=== PATIENT | male | born 1950 | race Caucasian/White ===

== ENCOUNTER 2019-07-14 11:44 | Emergency (ER) | payer MEDICARE ==
[2019-07-14] MEDS ORDERED: Lorazepam 2 MG/ML VIAL ONE (12:16)
[2019-07-14] MEDS ORDERED: Adacel (T-DAP) 0.5 ML SYRINGE ONE (12:30)
--- NOTE | 2019-07-14 12:43 | CT ---
CT BRAIN WITHOUT IV CONTRAST: HISTORY: Injury from trauma/fall. COMPARISON: 08/04/2016 FINDINGS: There was some atrophy and chronic white matter ischemic changes noted bilaterally with some generali zed ventricular dilatation which appears to be slightly more prominent than when compared to the prio r MRI, 08/04/2016. Stable left frontal encephalomalacic change. No mass or midline shift. No intraaxi al or extraaxial hemorrhage. The sinuses and mastoids are clear of acute process. Stable postoperativ e changes involving the right and left frontal bone regions. IMPRESSION: 1. No mass or bleed or other acute process. Some generalized ventriculomegaly, slightly more prominen t than prior MRI from 08/04/2016. 2. 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 No new process. POS: [facility]
--- NOTE | 2019-07-14 12:43 | CT ---
EXAM: CT cervical spine PROVIDED CLINICAL HISTORY: Injury after a fall. Trauma. TECHNIQUE: Contiguous axial CT images are obtained through the cervical spine from the skull base to the T2 leve l. Sagittal and coronal reformatted images are provided. COMPARISON: None FINDINGS: There is motion artifact which does limit evaluation. There is trace anterolisthesis of C7 on T1 likely due to facet hypertrophic changes, but there does a ppear to be fusion of the right-sided facet joints at this level. No additional level of subluxation is seen. The vertebral body heights are within normal limits, and no fracture is seen. Multilevel degenerative changes are seen in the cervical spine. Disc osteophyte complexes and uncinat e process hypertrophy are seen at multiple levels in addition to narrowing of the intervertebral disc spaces at all levels. There is central canal narrowing greatest at the C5-6 and C6-7 levels. The re is moderate to severe left-sided neural foraminal narrowing at the C4-5 level and on the right at the C5-6 level as well as bilaterally at the C6-7 level primarily related to bony encroachment. No prevertebral soft tissue swelling apparent. Visualized lung apices appear clear. Small hypodense 1.2 cm nodule seen in the left lobe of the thyroid gland. IMPRESSION: 1. There is motion artifact which does limit osseous detail, but no evidence of a fracture or traumat ic subluxation is seen. 2. Multilevel degenerative changes seen throughout the cervical spine. 3. Hypodense nodule left lobe of thyroid gland. Nonemergent thyroid ultrasound is recommended..
--- NOTE | 2019-07-14 13:00 | CT ---
EXAM: CT Facial Bones WO Con PROVIDED CLINICAL HISTORY: Trauma. Injury after a fall. COMPARISON: None FINDINGS: No fracture seen involving the facial bones. There is mild rightward deviation of the bony nasal sept um. The paranasal sinuses and visualized mastoid air cells are clear. There is mild subcutaneous soft tissue irregularity seen anterior to the maxilla with minimal subcutaneous soft tissue swelling with slight increased density seen involving the inferior aspect of the nose which may be related to recent injury and laceration with soft tissue swelling. The orbits are symmetric and normal in fausto earance bilaterally. The temporomandibular joints have a normal appearance without dislocation. Degenerative changes are seen in the cervical spine. There is a small subcentimeter lucency seen in t he right aspect of the C5 vertebral body which is difficult to further characterize. This is also seen on recent CT of the cervical spine IMPRESSION: 1. No evidence of a fracture involving the facial bones. 2. Soft tissue swelling and mild soft tissue irregularity seen anterior to the maxilla likely due to recent injury. 3. Nonspecific rounded subcentimeter lucency seen in the C5 vertebral body.
--- NOTE | 2019-07-14 13:08 | RAD ---
LEFT HIP TWO VIEWS: HISTORY: Left hip pain following injury from a fall. FINDINGS: Evidence for some osteoarthrosis change, left hip joint. This includes some hypertrophic osteophytosi s of the femoral head and neck region. No acute fracture or dislocation. IMPRESSION: Osteoarthrosis changes, left hip joint, without acute fracture or dislocation. If the patient has nonresolving or worsening hip pain or cannot ambulate at pre-trauma levels, consid er non-emergent follow-up MRI for further assessment. POS: [facility]
--- NOTE | 2019-07-14 13:20 | RAD ---
LEFT KNEE TWO VIEWS: HISTORY: Pain following injury from a fall. FINDINGS: Tricompartment arthrosis and degenerative change of the left knee joint. No fracture or dislocation. IMPRESSION: Arthrosis without acute fracture or dislocation. POS: [facility]
[2019-07-14] MEDS ORDERED: Lidocaine 1% w/Epinephrine 1:100K 20 ML VIAL ONE (13:43)
[2019-07-14] MEDS ORDERED: Propofol 500 MG/50 ML VIAL ONE (13:43)
== END 2019-07-14 15:10 | disposition home or self-care (01) ==
LOC: ERS 11:44
DX: S01.81XA Laceration without foreign body of other part of head, initial encounter (principal); R04.0 Epistaxis; M25.552 Pain in left hip; M25.562 Pain in left knee; F03.90 Unspecified dementia, unspecified severity, without behavioral disturbance, psychotic disturbance, mood disturbance, and anxiety; I10 Essential (primary) hypertension; Z79.899 Other long term (current) drug therapy; Z23 Encounter for immunization; W19.XXXA Unspecified fall, initial encounter
CPT/HCPCS: 70450; 70486; 72125; 73502; 73560; 90715; J2060; J2704; 12011; 90471; 96372; 96374; 99152